=== PATIENT | female | born 1990 | race Caucasian/White ===

== ENCOUNTER → 2016-11-28 | Outpatient (REF) ==
[~2016-11-28] MED LIST: ALBUTEROL SULFAT3 M3 IH; B COMPLEX1 TA4 PO; CALCIUM1 CAP PO; CEFTIN 250250 MG/TAB PO; CEPHALEXIN500 M1 PO; CIPRO 500MG TA500 MG PO; FLOMAX 0.40.4 MG/CAP PO; IRON FERROUS S325 MG PO; LORTAB 5/500 501 TAB PO; MOTRIN 600600 MG/TAB PO; MOTRIN 800800 MG/TAB PO; NORCO 325 MG-51 TAB PO; PERCOCET 325 MG1 TA2 PO; PHENERGAN 25 TA25 MG PO; PHENERGAN25 MG RC; PRENATAL1 TA1 PO; PRENATAL1 TA4 PO; PROAIR HFA0.09 MG/AC IH; PULMICORT0.5 MG/2 M IH; PULMICORT90 MCG/Act IH; SLOW FE45 MG PO; VITAMIN B-1000 MCG/T PO; ZITHROMAX Z PA250 MG PO; ZOFRAN 4MG T4 MG/TAB PO; ZOFRAN ODT4 MG PO
== END ==
LOC: WSOH 09:20
DX: Z02.1 Encounter for pre-employment examination (principal)

== ENCOUNTER → 2016-11-28 | Outpatient (REF) | LOC: WSOH 09:25 | DX: Z02.1 Encounter for pre-employment examination (principal) ==

== ENCOUNTER → 2016-11-30 | Outpatient (REF) | LOC: WSOH 11:45 | DX: Z02.1 Encounter for pre-employment examination (principal) ==

== ENCOUNTER → 2016-11-30 | Outpatient (REF) | LOC: WSOH 11:13 | DX: Z01.84 Encounter for antibody response examination (principal) ==

== ENCOUNTER → 2016-12-13 | Outpatient (REF) | LOC: WSOH 09:40 | DX: Z02.89 Encounter for other administrative examinations (principal) ==

== ENCOUNTER → 2017-04-09 | Outpatient (REF) ==
[2017-04-09 19:24] LABS: THYROID STIMULATING HORMONE 0.996 uIU/mL (0.465-4.680)
== END ==
LOC: ZLAB.WCH 18:18
PROVIDERS: Nurse Practitioner Family
DX: Z01.89 Encounter for other specified special examinations (principal)

== ENCOUNTER → 2017-05-09 | Outpatient (REF) | LOC: ZLAB.WCH 18:09 | DX: Z01.89 Encounter for other specified special examinations (principal) ==